=== PATIENT | female | born 2000 | race Hispanic/Latino ===

== ENCOUNTER 2022-03-17 14:47 | Inpatient (IN) | payer BC ==
[2022-03-17 15:08] VITALS: BMI 35.2
[2022-03-17] MEDS ORDERED: Senokot S 8.6-50 MG TAB PO PRN (15:51)
[2022-03-17] MEDS ORDERED: Ondansetron PF 4 MG/2 ML Vial IVP PRN (15:51)
[2022-03-17] MEDS ORDERED: Acetaminophen 325 MG TAB PO PRN (15:51)
[2022-03-17] MEDS ORDERED: Ondansetron ODT 4 MG TAB PO PRN (15:51)
[2022-03-17] MEDS ORDERED: Dicyclomine 20 MG/2 ML VIAL IM PRN (19:41)
[2022-03-17] MEDS ORDERED: Dicyclomine 20 MG TAB PO SCH (20:45)
[2022-03-18 05:25] LABS: CRP (Inflammatory) 1.15 mg/dL (= or < 0.5)
[2022-03-18 05:26] LABS: ALT (SGPT) 66 U/L (8-55); AST (SGOT) 34 U/L (5-34); Albumin 4.3 g/dL (3.5-5.0); Alkaline Phosphatase 81 U/L (40-100); Anion Gap 13 mmol/L (10-20); BUN (Urea Nitrogen) 10 mg/dL (7.0-18.7); Bilirubin, Total 0.3 mg/dL (0.2-1.2); Calc. Creatinine Clearance 173 mL/min (70-130); Calcium 9.1 mg/dL (7.8-10.44); Carbon Dioxide 20 mmol/L (22-29); Chloride 106 mmol/L (98-107); Estimated GFR 129; Globulin 3.8 g/dL (2.4-3.5); Glucose 183 mg/dL (70-105); Iron 72 ug/dL (50-170); Iron Binding Capacity, Total 371 mcg/dL (265-497); Potassium 4.2 mmol/L (3.5-5.1); Protein, Total 8.1 g/dL (6.0-8.3); Sodium 135 mmol/L (136-145)
[2022-03-18 05:34] LABS: #Lymphocytes 1.2 thou/uL (1.20-3.40); #Monocytes 0.3 thou/uL (0.11-0.59); #Neutrophils 9.3 thou/uL (1.40-6.50); %Basophils 0.2 % (0.0-1.0); %Eosinophils 0.3 % (0.0-10.0); %Lymphocytes 11.3 % (28.0-48.0); %Monocytes 2.7 % (0.0-4.0); %Neutrophils 85.6 % (31.0-61.0); Hemoglobin 12.3 g/dL (12.0-16.0); Mean Corpuscular HGB CONC 33.2 g/dL (32.0-36.0); Mean Corpuscular Hemoglobin 28.7 pg (25.0-35.0); Mean Corpuscular Volume 86.4 fL (78.0-98.0); Mean Platelet Volume 11.3 fL (7.4-10.4); Platelet Count 28 thou/uL (130-400); RBC Distribution Width 11.7 % (11.5-14.5); White Blood Cell (WBC) Count 10.9 thou/uL (4.8-10.8)
[2022-03-18] MEDS ORDERED: Dexamethasone 4 MG TAB PO SCH (08:00)
[2022-03-18] MEDS ORDERED: Calcium Carbonate 500 MG ChewTAB PO PRN (09:57)
[2022-03-18] MEDS ORDERED: Mag-Al Plus 1200 MG/1200 MG/120 MG/30 ML UDCUP PO PRN (09:57)
[2022-03-18 12:07] VITALS: BP 107/66; TEMP 98.1
== END 2022-03-18 14:34 | disposition home or self-care (01) | DRG 813 ==
LOC: MSONC 14:51
PROVIDERS: ADMIT Internal Medicine; ATTEND Internal Medicine
DX: D69.3 Immune thrombocytopenic purpura (principal); D64.9 Anemia, unspecified; Z20.822 Contact with and (suspected) exposure to COVID-19; Z88.1 Allergy status to other antibiotic agents; Z88.0 Allergy status to penicillin; Z88.2 Allergy status to sulfonamides
CPT/HCPCS: 36415; 80053; 82607; 83540; 83550; 83615; 84439; 84443; 84702; 85025; 85049; 85060; 85240; 85245; 85246; 85247; 85610; 85652; 85730; 86038; 86140; 86225; J8540